=== PATIENT | male | born 1965 | race Caucasian/White ===

== ENCOUNTER 2017-06-09 08:16 | Day surgery (SDC) | payer MEDICAID, SELFPAY ==
[2017-06-09 08:41] VITALS: BP 147/86; PULSE 75; RESP 16; TEMP 36.2; O2SAT 96; BMI 39.6
--- NOTE | 2017-06-09 10:10 | RAD_ITS ---
STUDY: HIP INJECTION LEFT REASON FOR EXAM: Male, 51 years old. Left hip pain. FLUOROSCOPY TIME (if supplied): (6.1 seconds) minutes/seconds TECHNIQUE: Under fluoroscopic guidance, the pain medicine physician performed a left hip injection. COMPARISON: None. FINDINGS: Imaging provided for left hip injection. RAD/Inj/Asp Brian Jt Should/Hip/Knee IMPRESSION: Imaging provided for left hip injection. Electronically Signed: Joon Sanches MD at 9:03 EST Tel [phone], Service support ,
[2017-06-09] MEDS: Bupivacaine 0.25% 30 ML Vial (10:23)
[2017-06-09] MEDS: MethylPREDNISolone Acetate 80 MG/ML Vial (10:24)
[2017-06-09 10:30] VITALS: BP 105/82; BP 147/86; PULSE 70; RESP 16; TEMP 36.9; O2SAT 94
[2017-06-09 10:35] VITALS: BP 106/82; BP 147/86; PULSE 75; RESP 16; O2SAT 94
[2017-06-09 10:40] VITALS: BP 116/76; BP 147/86; PULSE 72; RESP 16; O2SAT 96
[2017-06-09 10:45] VITALS: BP 111/84; BP 147/86; PULSE 70; RESP 16; TEMP 36.7; O2SAT 96
[2017-06-09 11:05] VITALS: BP 147/86
--- NOTE | 2017-06-09 11:22 | PCM.OPRPT ---
Problem List (1) Primary osteoarthritis of left hip Status: Chronic Report of Operation Date of Procedure: 06/09/17 Pre-Operative Diagnosis: Osteoarthritis of the left hip Post-Operative Diagnosis: Osteoarthritis of the left hip Surgery/Procedure Performed:: Left hip intra-articular steroid injection under fluoroscopic guidance Description of Surgical Findings:: PROCEDURE: Left hip intra-articular steroid injection under fluoroscopy guidance PREOPERATIVE DIAGNOSES: Osteoarthritis of the left hip POSTOPERATIVE DIAGNOSES: Osteoarthritis of the left hip ANESTHESIA: MAC COMPLICATIONS: None BLOOD LOSS: Minimal PROCEDURE IN DETAIL: History and physical today was reviewed. Risks and benefits of the procedure were explained. The patient understood, agreed to our procedure, and informed consent was obtained. IV inserted per routine protocol. The patient was taken to the operating room, placed in a supine position the left hip area was prepped and draped in a sterile fashion using iodine ?3 under direct visualization with fluoroscopy on AP view the left greater trochanter and the left hip was visualized the skin and subcutaneous tissue were anesthetized with approximately 3 cc of 1% lidocaine using a 25-gauge regular needle under direct visualization with fluoroscopy on a lateral approach using a 22-gauge 5 inch spinal needle the needle was advanced via the skin the tip of the needle was was maneuvered and directed towards the left hip joint once the tip of the needle is at the vicinity of the superiormost aspect of the hip joint, after negative aspiration for blood positive aspiration of saline over fluid a total of 1 cc of contrast were injected to confirm correct placement of the needle as well as halo spread around the hip joint confirmation was obtained on AP as well as oblique view after repeated negative aspiration for blood and confirmation AP as well as oblique view a total of 10 cc of preservative-free 0.25% Marcaine with 80 mg of Depo-Medrol were injected into the joint , the needle was then removed intact patient experienced no signs or symptoms of intravascular injection patient experienced no paresthesia the procedure was completed without any apparent difficulty any complication and the patient appeared to tolerate well. ASSESSMENT AND PLAN: This is a 51-year-old male with osteoarthritis of the left hip status post left hip intra-articular steroid injection under fluoroscopic guidance patient will continue his current medications patient will follow approximately 2 weeks for reevaluation.
== END 2017-06-09 11:06 | disposition home or self-care (01) ==
LOC: SDC 08:17 → AC 08:19
PROVIDERS: Family Provider Family Medicine; PCP Family Medicine; Visit Provider Anesthesiology Pain Medicine
PROC: 3E0U3GC Introduction of Other Therapeutic Substance into Joints, Percutaneous Approach (ICD-10-PCS; CPT 20610; principal; 2017-06-09 10:05)
DX: M16.12 Unilateral primary osteoarthritis, left hip (principal); M51.17 Intervertebral disc disorders with radiculopathy, lumbosacral region; M48.07 Spinal stenosis, lumbosacral region; I10 Essential (primary) hypertension; Z79.891 Long term (current) use of opiate analgesic
CPT/HCPCS: 20610; 76000; 77002; J7120

== ENCOUNTER 2017-10-21 08:35 | Inpatient (IN) | payer MEDICAID, SELFPAY ==
--- NOTE | 2017-10-10 08:33 | EKG12_ITS ---
Test Reason : Blood Pressure : / mmHG Vent. Rate : 090 BPM Atrial Rate : 090 BPM P-R Int : 170 ms QRS Dur : 084 ms QT Int : 358 ms P-R-T Axes : 028 009 009 degrees QTc Int : 437 ms Poor data quality, interpretation may be adversely affected Normal sinus rhythm Normal ECG Confirmed by SANDRA KENYON, KELY ([id number]), movie editor DURAN CAVANAUGH ([id number]) on 10/13/2017 3:33:43 PM Referred By: Lambert Munoz Confirmed By:KELY FLORES MD
[2017-10-10 08:47] VITALS: BP 140/86; PULSE 91; RESP 18; TEMP 36.1; O2SAT 95; BMI 40.1
[2017-10-10 10:50] LABS: Absolute Lymphocyte Count 2.01 X10^3/ul (0.83-4.51); Absolute Neutrophil Count 5.8 X10^3/uL (2.0-7.7); Basophil# 0.02 X10^3/uL; Basophil% 0.2 % (0-1); Eosinophil# 0.22 X10^3/uL; Eosinophils% 2.5 % (0-5); Hematocrit 44.8 % (40-54); Hemoglobin 15.2 g/dl (13.0-16.5); Lymphocyte # 2.01 X10^3/ul (4.0); Mean Corp Hgb Conc 33.9 g/gl (32-36); Mean Corpuscular Hgb 29.6 pg (27.0-32.0); Mean Corpuscular Volume 87.3 fL (80-94); Mean Platelet Vol. 10.2 fl (6.2-12.0); Neutrophil # 5.76 X10^3/uL (2.7-7.7); Neutrophil % 66.1 % (47-70); Platelet Count 263 K/mm3 (150-450); RBC Distribution Width CV 12.6 % (11.6-14.6); RBC Distribution Width SD 40.5 fl (35.1-43.9); Red Blood Count 5.13 M/mm3 (4.6-6.2); White Blood Count 8.7 K/mm3 (4.4-11.0)
[2017-10-10 10:51] LABS: POSITIVE COUNT NO; POSITIVE DIFFERENTIAL NO; POSITIVE MORPHOLOGY NO
[2017-10-10 11:09] LABS: Anion Gap 11 (5-15); BUN 20 mg/dL (7-18); BUN/Creat Ratio 15.4 RATIO (10-20); Calcium,Total 8.8 mg/dL (8.5-10.1); Chloride 104 mmol/L (98-107); EST Glomerular Filtration Rate 62 mL/min (>60); Est Glom Filt Rate - Afr Amer 75 mL/min (>60); Estimated Creatinine Clearance 70.97 ml/min; Glucose 97 mg/dL (74-106); Potassium 4.3 mmol/L (3.5-5.1); Sodium Level 138 mmol/L (136-145)
[2017-10-21] VITALS (11 sets, daily range): BP systolic 99–146; BP diastolic 65–98; PULSE 52–83; RESP 14–18; TEMP 36.1–36.8; O2SAT 93–98; BMI 40.1
[2017-10-21] MEDS: oxyCODONE HCl Cr 10 MG Tablet PO (09:13)
[2017-10-21] MEDS: Celecoxib 200 MG Capsule 400 MG PO (09:13)
[2017-10-21] MEDS: Acetaminophen 500 MG Tablet 1000 MG PO ×2 (09:13→22:02)
[2017-10-21] MEDS: Cefazolin 2 GM in 0.9% Normal Saline 100 ML IV (10:09)
--- NOTE | 2017-10-21 10:18 | PCM.OPRPT ---
Report of Operation Date of Procedure: 10/21/17 Pre-Operative Diagnosis: Left hip primary with arthritis Post-Operative Diagnosis: Left hip primary osteoarthritis Surgery/Procedure Performed:: Left direct anterior total hip replacement Description of Surgical Findings:: Stable hip with equal leg length deputy county counsel: Shakir Senior Type of Anesthesia:: Spinal Anesthesiologist: Huang Ronquillo Special Medications: 2 g Ancef, 1 g TXA at incision, 1 g TXA closure, 10 mg Decadron, joint cocktail (5 mg Duramorph, 30 mL of 0.5% Ropivicaine, 1000 units of epinephrine, 30 mg of Toradol) Specimen's removed: Bony cuts Estimated Blood Loss (mL): 250 Fluids Replaced: 1200 ml Crystalloid Description of Procedure: Components used: 1. Accolade 2 Cozad femoral stem size 4 127? 2. Cozad trident acetabular shell size 58 mm 3. Radha X3 polyethylene F, eccentric 4. Radha Biolox delta 36mm, 0mm femoral head Brief history operative indications: 51 yo m who failed conservative measures for their hip osteoarthritis. X-rays were consistent with osteoarthritis including joint space narrowing, osteophyte formation and subchondral cysts. Total hip replacement was discussed with the patient with risks and benefits including but not limited to blood loss, DVTs, PEs, neurovascular damage, dislocation, general risks of anesthesia including loss of life. Patient demonstrated an understanding medical clearance is obtained the patient was consented for surgery. Procedure: On the date of procedure the patient's L hip was marked in the preoperative area. Patient was then taken back to the operating room where anesthesia assumed control of the C-spine and airway and administered anesthetic. Patient was transferred to the operating table and placed in the supine position. The hips were placed at the break of the bed and a sacral bump was placed. The L lower extremity was then prepped out in a sterile fashion using chlorhexidine while the surgeon scrubbed. The PA was vital in the positioning of the patient. Upon reentering the room the L lower extremity was draped in the standard orthopedic fashion and the incision was marked. A timeout was called and everyone agreed upon the side, the site, the procedure be performed, antibody given, and patient's identity. At this time incision was made through skin, subcutaneous tissue, and fat down to fascia. The fascia was then incised and the TFL was retracted laterally. A retractor was placed on the lateral border of the femoral neck. Attention was directed to the inferior portion of the approach and all crossing vessels were identified and appropriately coagulated. A retractor was then placed on the medial portion of the femoral neck. The anterior capsule was then cleared of all soft tissue and then H shaped capsulotomy was made. The retractors were then placed inside the capsule. The femoral neck was identified and a cleanup cut was made. At this time a power corkscrew was used to remove the femoral head. Attention was then turned toward the acetabulum where the soft tissues were appropriately retracted and the acetabulum was sequentially reamed to 57 mm. A 58 mm cup was then selected and impacted into place. Acetabular liner was impacted into place and locking mechanism was verified. The position of the acetabular cup was then verified under live fluoroscopy. Attention was then turned to the femur. Soft tissue releases on the medial and lateral femoral neck were appropriately done, the leg was externally rotated and lateralized. A Booth retractor was placed medially and proximally to the greater trochanter this allowed appropriate visualization and exposure of the femoral canal. Rongeour was then used to remove excess lateral bone. A canal finder and entry broach were used to open the proximal canal. Once we verified we were down the femoral canal we subsequently broached up to a size 4 femur. The appropriate neck was placed in the previously selected head was trialed with a 0 mm neck. Traction was pulled and the hip was reduced with internal rotation. Once it was appropriately reduced and stability was checked. There was minimal shuck, equal leg lengths and appropriate stability with hyperextension and external rotation as well as with 90? flexion and internal rotation. Fluoroscopy was then also used to verify the position of the components and leg lengths using the contralateral side for comparison. The trial components were then dislocated the proximal femur was again exposed and the components were removed from the wound. The final components were verified and opened. The wound was copiously irrigated out with normal saline. The acetabulum was checked for any residual debris. The final components were placed and impacted. Traction and internal rotation were again used to reduce the hip. After adequate reduction the hip remained stable with appropriate leg lengths. The final components were once again checked with live fluoroscopy and were found to be satisfactory. The wound was then copiously irrigated with normal saline once more, and hemostasis was obtained. Closure was then done using #1 Vicryl runner to close the fascia. A 2-0 vicryl interuppted sutures were used to close the subcutaneous skin. A 3-0 Monocryl and Steri-Strips were used for final skin closure. A Silverlon dressing was placed. Patient was awakened by anesthesia and transferred to the [facility]. Patient was then transferred to the PACU for recovery. Postoperative plan: Patient will get 24 hours postop antibiotics. Patient will get in-house physical therapy and will be weight-bear as tolerated. Patient will follow up in office in 2 weeks for a wound check and x-rays. During the course of the procedure the physician pharmacy technician assistant played a vital role. His intimate knowledge of my steps in the procedure aided in safe and expedient completion of the procedure. The PA played a vital rolls in positioning particularly in obtaining the appropriate positioning of the sacral bump. The PA was also vital in the retraction of soft tissues during the exposure and especially the femoral work as this is a vital part of the procedure to prevent complications and fractures. The PA was also vital and protecting soft tissues during times of bony cuts and reaming. He also played a vital role in closure with my direct supervision. The PA was also important during reduction and dislocation of the joint and trials intraoperatively. Grafts/Implants Used: Radha Accolade 2 - Complications none - Admit VTE Documentation VTE Present on Admission: No VTE Mechan Device Prophylaxis: SCD's, Thigh High SWAPNIL Hose VTE Pharm Prophylaxis ordered?: Yes
--- NOTE | 2017-10-21 11:10 | RAD_ITS ---
STUDY: X-RAY - PELVIS AND LEFT HIP REASON FOR EXAM: Male, 51 years old. Left hip replacement. TECHNIQUE: Radiological exam, hip, unilateral, with pelvis when performed; 1 view COMPARISON: None. FINDINGS: Intraoperative fluoroscopic services provided for left anterior total hip replacement. RAD/Hip 1 view with Pelvis IMPRESSION: Intraoperative imaging provided for left anterior total hip replacement. Electronically Signed: Joon Sanches MD at 14:13 EDT Tel [phone], Service support ,
--- NOTE | 2017-10-21 13:10 | RAD_ITS ---
STUDY: X-RAY - PELVIS AND LEFT HIP REASON FOR EXAM: Male, 51 years old. Total hip replacement. TECHNIQUE: Radiological exam, hip, unilateral, with pelvis when performed; 1 view COMPARISON: Comparison is made with prior examination dated October 17, 2013. FINDINGS: The patient is status post left total hip replacement. There is good alignment. Postoperative soft tissue changes. Remote right total hip replacement. RAD/Hip 1 view with Pelvis IMPRESSION: Status post left total hip replacement. There is good alignment. Postoperative soft tissue changes. Electronically Signed: Joon Sanches MD at 14:05 EDT Tel [phone], Service support ,
[2017-10-21] MEDS: Senna/Docusate Sodium 1 Tablet 2 TABLET PO ×2 (16:18→22:03)
[2017-10-21] MEDS: Famotidine 20 MG Tablet PO (16:18)
[2017-10-21] MEDS: Aspirin 81 MG TAB.CHEW PO (16:18)
[2017-10-21] MEDS: oxyCODONE 5 MG Tablet PO ×2 (16:21→22:03)
[2017-10-21] MEDS: Cefazolin 1 GM/50 ML BAG IV (16:23)
[2017-10-21] MEDS: Lactated Ringers 1,000 ML 125 ML IV (18:18)
[2017-10-22] MEDS: Cefazolin 1 GM/50 ML BAG IV (01:01)
[2017-10-22 02:20] VITALS: BP 100/62; PULSE 51; RESP 14; TEMP 36.6; O2SAT 96
[2017-10-22] MEDS: Lactated Ringers 1,000 ML 125 ML IV (02:23)
--- NOTE | 2017-10-22 05:08 | NURSING ---
Pt heard yelling in room. When this nurse + ENGINE TEST CELL TECHNICIAN walked into the room, pt was found sitting in chair stretching out leg, appearing to be in pain after having stood up quickly after having a 'bad dream'. Denies N/T or sharp radiating pain. Polar care place back on hip, will continue to monitor
[2017-10-22 06:06] LABS: Hematocrit 37.8 % (40-54); Hemoglobin 12.9 g/dl (13.0-16.5); Mean Corp Hgb Conc 34.1 g/gl (32-36); Mean Corpuscular Hgb 29.6 pg (27.0-32.0); Mean Corpuscular Volume 86.7 fL (80-94); Mean Platelet Vol. 10.4 fl (6.2-12.0); Platelet Count 242 K/mm3 (150-450); RBC Distribution Width CV 12.7 % (11.6-14.6); RBC Distribution Width SD 39.2 fl (35.1-43.9); Red Blood Count 4.36 M/mm3 (4.6-6.2); White Blood Count 16.3 K/mm3 (4.4-11.0)
[2017-10-22 06:13] LABS: Scan Indicated on CBC? Y/N NO
[2017-10-22 06:26] LABS: Anion Gap 11 (5-15); BUN 17 mg/dL (7-18); BUN/Creat Ratio 15.9 RATIO (10-20); Calcium,Total 8.8 mg/dL (8.5-10.1); Chloride 105 mmol/L (98-107); Creatinine, Serum 1.07 mg/dL (0.70-1.30); EST Glomerular Filtration Rate 78 mL/min (>60); Est Glom Filt Rate - Afr Amer 94 mL/min (>60); Estimated Creatinine Clearance 86.23 ml/min; Glucose 140 mg/dL (74-106); Potassium 4.4 mmol/L (3.5-5.1); Sodium Level 140 mmol/L (136-145)
[2017-10-22] MEDS: oxyCODONE 5 MG Tablet PO ×3 (06:26→14:57)
[2017-10-22] MEDS: Acetaminophen 500 MG Tablet 1000 MG PO ×2 (06:26→13:37)
--- NOTE | 2017-10-22 07:13 | PCM.PN.ORT ---
Subjective: The patient was sitting in bedside chair upon examination. Patient denies any chest pain, shortness of breath, dizziness, lightheadedness, nausea or vomiting, or calf pain. Pain is controlled on medications. No adverse overnight events. Overall patient is doing well today. He does have pain in the left hip but medications are helpful. Objective: Vital signs stable and afebrile. Patient is able to plantarflex and dorsiflex actively. Sensation is intact to light touch to saphenous, sural, superficial and deep peroneal, and tibial distribution. Dressing is clean dry and intact. Negative Homans bilaterally, negative signs and symptoms of DVT. - Physical Exam General: Alert, Oriented x3, Cooperative, No apparent distress Vital Signs Temp Pulse Resp BP Pulse Ox 97.8 F 51 L 14 100/62 96 10/22/17 02:20 10/22/17 02:20 10/22/17 02:20 10/22/17 02:20 10/22/17 02:20 Oxygen Delivery Method Room Air Weight: 127.006 kg Body Mass Index (BMI) 40.1 Intake and Output for Last 24 Hours 10/20/17 10/21/17 10/22/17 23:59 23:59 23:59 Intake Total 2175 / 2175 2715 / 2715 Output Total 700 / 700 Balance 2175 / 2175 2014 Laboratory Tests Past 24 Hrs 10/22/17 10/22/17 05:20 05:20 WBC 16.3 H RBC 4.36 L Hgb 12.9 L Hct 37.8 L MCV 86.7 MCH 29.6 MCHC 34.1 RDW 12.7 RDW Differential 39.2 Plt Count 242 MPV 10.4 Sodium 140 Potassium 4.4 Chloride 105 Carbon Dioxide 24.0 Anion Gap 11 BUN 17 Creatinine 1.07 Estim Creat Clear Calc 86.23 Est GFR (MDRD) Af Amer 94 Est GFR (MDRD) Non-Af 78 BUN/Creatinine Ratio 15.9 Glucose 140 H Calcium 8.8 Medical Necessity - Tobacco Use Smoking Status: Never smoker Assessment/Plan 1. S/P left total hip arthroplasty direct anterior POD #1 2. Continue Pain Medications: Tylenol and OxyIR 3. DVT Prophylaxis: 81 mg aspirin twice daily for 4 weeks 4. PT/OT: Weightbearing as tolerated 5. H & H: 12.9/37.8, asymptomatic 6. Leukocytosis: Currently 16.3, afebrile. Patient did receive Decadron intraoperatively 7. Encouraged Incentive Spirometry 8. Disposition: Plan is for possible discharge home today if patient tolerates physical therapy and pain is well controlled. Patient will follow-up per postop instructions. Prescriptions will be E scribed to [facility]
--- NOTE | 2017-10-22 07:19 | PCM.DC.THR ---
Discharge Diet: No Restrictions Discharge Activity: May Not Drive - while taking narcotic pain medications. May shower in (days): 1 - Turned dressing away from water Ice area for (Minutes): 20 - Every 1-2 hours while awake Weight Bearing Status: Weight bearing as tolerated Elevate: Operative Extremity Additional Activity Instructions:: Wear elastic stockings for 2 weeks. DO NOT use alcohol with narcotic pain medication. DO NOT make important decisions while taking narcotic medication. If you have problems with taking your medication (rash, itching, nausea, etc.) call the office at once. Call your doctor if your incision/area has: Increased Pain/ Swelling, Increased Redness, Foul Smelling Discharge Call your doctor if you observe: Fever of 101 or Higher Remove Dressing in (days):: 4 - Okay to remove on October 26, 2017 Additional Instructions: Follow [facility] postop instructions Allergies/Adverse Reactions: Allergies morphine Adverse Reaction (Verified 10/10/17 08:37) Other HYPER Medications to take at Discharge Acetaminophen [Tylenol] 1,000 mg PO Q8 #90 tab 10/22/17 Aspirin [Aspirin, Baby] 81 mg PO BIDCM #60 tab.chew 10/22/17 Famotidine [Pepcid] 20 mg PO DAILY #30 tab 10/22/17 Meloxicam [Mobic] 7.5 mg PO BID #60 tab 10/22/17 Oxycodone [Oxyir] 5 - 10 mg PO Q4H PRN PRN 5 Days #60 tablet 10/22/17 Senna/Docusate Sodium [Senokot-S] 2 tab PO BID #20 tab 10/22/17 The following prescriptions were given: Oxycodone [Oxyir] 5 - 10 mg PO Q4H PRN PRN 5 Days #60 tablet PRN Reason: Mod-Severe Pain (4-10/10) Acetaminophen [Tylenol] 1,000 mg PO Q8 #90 tab Famotidine [Pepcid] 20 mg PO DAILY #30 tab Aspirin [Aspirin, Baby] 81 mg PO BIDCM #60 tab.chew Meloxicam [Mobic] 7.5 mg PO BID #60 tab Senna/Docusate Sodium [Senokot-S] 2 tab PO BID #20 tab Primary Care Physician: Allan Munoz MD [Primary Care Provider] - Test Results: Test results from this visit will be discussed in further detail at your follow-up appointment, if applicable. Please Follow Up With: physical therapy Please Follow Up With: Shakir Senior PA-C When: 11/03/17 @ 1:15 pm
[2017-10-22 08:24] VITALS: BP 116/61; PULSE 54; RESP 18; TEMP 36.5; O2SAT 98
[2017-10-22] MEDS: Meloxicam 7.5 MG Tablet PO (08:31)
[2017-10-22] MEDS: Aspirin 81 MG TAB.CHEW PO (08:32)
[2017-10-22] MEDS: Famotidine 20 MG Tablet PO (08:32)
[2017-10-22] MEDS: Senna/Docusate Sodium 1 Tablet 2 TABLET PO (08:32)
--- NOTE | 2017-10-22 12:00 | CASEMGMT ---
BENJAMIN BRUCE Face to Face with patient for initial transition planning/care coordination assessment. BENJAMIN BRUCE introduced self and role at [facility]. Patient sitting in chair, alert and oriented. Patient willing to participate in assessment and is able to answer all questions appropriately. Care providers, pharmacy, and demographics verified. Patient states that he will be staying with parents in their one story home. Patient's parents will be providing transportation. Patient states that he has crutches and hip kit at home. RN JANIS discussed need for walker at discharge. Patient provided list of [employer] companies and is agreeable to [employer]. BENJAMIN BRUCE obtained script for FWW and faxed to [employer] and arranged for deliver to hospital prior to discharge. Patient wishes to discharge home and is setup with [facility] for outpatient therapy with parents providing transportation. Patient states he has no further needs or concerns at this time. CM to follow for discharge planning needs that may arise. Disposition Plan: Patient to discharge home with outpatient therapy, family support, and follow-up plans in place.
[2017-10-22 13:34] VITALS: BP 109/51; PULSE 70; RESP 18; TEMP 37.1; O2SAT 96
== END 2017-10-22 15:02 | disposition home or self-care (01) | DRG 209 ==
LOC: ACINP 08:36 → MS3 12:25
PROVIDERS: Admitting Provider Specialist; Family Provider Family Medicine; PCP Family Medicine; Visit Provider Specialist
PROC: 0SRB04A Replacement of Left Hip Joint with Ceramic on Polyethylene Synthetic Substitute, Uncemented, Open Approach (ICD-10-PCS; CPT 27284; principal; 2017-10-21 10:45)
DX: M16.12 Unilateral primary osteoarthritis, left hip (principal); Z96.641 Presence of right artificial hip joint
CPT/HCPCS: 36415; 73501; 76000; 80048; 85025; 85027; 87081; 93005; 97116; 97162; 97165; 97530; 99251; C1776; J7120; G0463

== ENCOUNTER 2020-05-03 05:39 | Day surgery (SDC) | payer MEDICAID, SELFPAY ==
[2017-10-21 14:05] VITALS: BMI 40.1
[2020-05-03] VITALS (8 sets, daily range): BP systolic 115–133; BP diastolic 76–96; PULSE 60–73; RESP 17–18; TEMP 36.2–37; O2SAT 97–99; BMI 43.4
[2020-05-03] MEDS: Cefazolin 1 GM/50 ML BAG IV (07:21)
[2020-05-03] MEDS: Lidocaine 1% (30 ml sdv) 30 ML Vial (07:42)
[2020-05-03] MEDS: Bupivacaine Mpf 0.5% 30 ML VIAL (07:42)
--- NOTE | 2020-05-03 07:44 | PCM.OPRPT ---
Report of Operation Date of Procedure: 05/03/20 Pre-Operative Diagnosis: Left carpal tunnel syndrome Post-Operative Diagnosis: Left carpal tunnel syndrome Surgery/Procedure Performed:: Left carpal tunnel release Description of Surgical Findings:: Complete release transverse carpal ligament hogshead roller: None Type of Anesthesia:: Block,Eric Anesthesiologist: Gildardo Acevedo Special Medications: Ancef 1 g Estimated Blood Loss (mL): 2 Fluids Replaced: Crystalloid Description of Procedure: Brief history operative indications: 54-year-old male patient wished to proceed with left open carpal tunnel release. After discussing risks and benefits including but not limited to blood loss, DVTs, PEs, neurovascular damage, infection, hematoma and general risk of anesthesia, the patient demonstrated understanding wish to proceed with left open carpal tunnel release Procedure: On the date of the procedure, the patient's left upper extremity was marked in the preoperative area. Patient was taken back to the operating room, where the tourniquet was placed on the right upper extremity. Patient was given light sedation. All bony prominences are identified well-padded. Anesthesia assumed control C-spine and airway and remained in control throughout the remainder the procedure. Bonduel block was administered by anesthesia. The left upper extremity was prepped in sterile fashion. Surgeon then scrub. Upon reentering the room, the left upper extremity was prepped in a standard orthopedic fashion. A timeout was called and everyone agreed upon the side, the site, the procedure to be performed, patient identity and antibiotics given. The incision was marked out. Incision was taken at the skin subtenons tissue fat down to fascia. Fascia was then lightly tethered until the median nerve was visible. A [place] was placed proximally and distally, and then scissors were placed proximally and distally to release the transverse carpal ligament. During the release the others were never completely closed. The [place] was then placed proximally and distally once more to verify the transverse carpal ligament had been adequately released. The wound was then copiously irrigated out with normal saline. Wound was then closed using 3-0 nylon suture. 10 cc of 50-50 mixture of 1% lidocaine and 0.5% Sensorcaine without epinephrine injection was given. Xeroform dressing was placed, sterile dressing was placed, compressive dressing was placed. Tourniquet was let down. Volar splint was placed. Patient was awakened by anesthesia and transferred to the PACU for recovery. Postoperative plan: The patient will follow up in 2 weeks for removal splint removal sutures. At that time if they are doing well they will follow-up as needed. - Complications No intraoperative complications - Admit VTE Documentation VTE Present on Admission: No VTE Mechan Device Prophylaxis: SCD's VTE Pharm Prophylaxis ordered?: No
[2020-05-03] MEDS: Ketorolac 30 MG/ML Syringe IV (08:04)
== END 2020-05-03 09:14 | disposition home or self-care (01) ==
LOC: SDC 05:40 → AC 05:40
PROVIDERS: PCP Family Medicine; Referring Provider Specialist; Visit Provider Specialist
PROC: (CPT 64721; principal; 2020-05-03 07:15)
DX: G56.03 Carpal tunnel syndrome, bilateral upper limbs (principal); I10 Essential (primary) hypertension; E78.5 Hyperlipidemia, unspecified; M10.9 Gout, unspecified; M19.90 Unspecified osteoarthritis, unspecified site; Z20.822 Contact with and (suspected) exposure to COVID-19; G47.30 Sleep apnea, unspecified; F32.9 Major depressive disorder, single episode, unspecified; F41.9 Anxiety disorder, unspecified; E66.01 Morbid (severe) obesity due to excess calories; Z68.42 Body mass index [BMI] 45.0-49.9, adult; Z79.899 Other long term (current) drug therapy; Z96.643 Presence of artificial hip joint, bilateral
CPT/HCPCS: 64721; 87426; C9803; J7120; J2405

== ENCOUNTER 2020-05-24 05:26 | Day surgery (SDC) | payer MEDICAID, SELFPAY ==
[2020-05-03 06:38] VITALS: BMI 43.4
--- NOTE | 2020-05-18 09:11 | HP.PCM_ITS ---
History and Physical History and Physical [facility] Patient Name: Jr Welch : 1965 From: CYNTHIA BROWER PA-C DATE OF SURGERY: 05/24/2020 SCHEDULED PROCEDURE: right carpal tunnel release HISTORY OF PRESENT ILLNESS: Preoperative history and physical exam was performed on May 18, 2020. This is a 54-year-old male who is had ongoing pain and numbness and tingling in bilateral hands for the past approximately 9 months. He was initially treated by Dr. Allan Munoz's primary care physician. Patient had an EMG nerve conduction study exam on April 18, 2020 which revealed moderate to severe carpal tunnel syndrome bilaterally with the left being worse than the right. Patient underwent a left carpal tunnel release on May 03, 2020 and is doing well. He has continued to have pain and symptoms in his right hand. Patient is left-hand dominant. He has numbness and tingling in the median nerve distribution. Patient states it occasionally wakes him at night. The right hand pain can reach 8/10 with activities. He does not complain of any significant cervical neck pain or elbow pain. Patient does wish to proceed with a right carpal tunnel release by Dr. Lambert Munoz. REVIEW OF SYSTEMS: ROS: Const: Reports anxiety and difficulty sleeping, but denies anorexia, change in appetite, fever, weight change. CV: Denies chest pain, heart murmur, irregular heartbeat and peripheral vascular disease. Resp: Reports sleep apnea, but denies asthma, cough, pneumonia, shortness of breath, tuberculosis and wheezing. GI: Denies constipation, diarrhea, heartburn, nausea, rectal itching, bloody stools and vomiting. : Denies incontinence. Musculo: Reports trouble walking and weakness, but denies leg swelling and pain. Skin: Reports history of shingles, but denies Raynaud's and tattoo. Neuro: Denies ambulatory dysfunction, dizziness, numbness/tingling and tremor. Psych: Reports anxiety, depression, insomnia and stress, but denies mental illness. Zain/Lymph: Denies anemia, bleeding/bruising tendency and past transfusion. Reviewed, no changes. PAST MEDICAL HISTORY: Advance Care Plan: No Advance Directives Effective Date: 12/20/2016 PMH: Medical Problems: Arthritis, High Blood Pressure, Hyperlipidemia Accidents: Sports Related Injury - CALCIUM DEPOSIT ON HIP (DR. STRONG) Surgical Hx: Hip Replacement RT - (11/28/2008) DR. EMMANUEL, [facility] LT THR - (10/21/2017) [email or web address] Carpal Tunnel Release LT - (05/03/2020) SAW AT [facility] Anesthesia Complications: None Assistive Devices: None Reviewed, no changes. SOCIAL HISTORY: SH: Marital: .Occupation: [employer].Work Status: Currently Working.Hand Dominance: Left-Handed. Personal Habits: Cigarette Use: Never.Alcohol: Occasionally.Drug Use: Denies Use.Enjoy Exercising: Exercises 1-3 x/month. Reviewed, no changes. VITALS: Ht: 69 Wt: 298lb Wt k.173 BMI: 44.0 BP: 128/86 Pulse: 78 Resp: 16 T: 97.5 T: 36.4C Pain Level: 1 ALLERGIES: Morphine Morphine And Related MEDICATIONS: [place] 5-325 mg 1-2 by mouth every 6 hour as needed pain, Allopurinol 300 mg Take 1 tablet by mouth daily, Ibuprofen 200 mg 2-3 tablets PO prn pain, Atorvastatin Calcium 20 mg, Tylenol Extra Strength 500 mg 2 by mouth every 8 hours PRE-OP EXAM: General appearance:NORMAL Other: Eyes: Conjunctivae and lids: NORMAL Pupils: ERR Ears, Nose, Mouth, and Throat: NORMAL Other: Inspection of lips, teeth and gums: NORMAL Other: Neck: Examination of neck: no masses noted. Respiratory: Assessment of respiratory effort: NORMAL Other: Auscultation of lungs: clear to auscultation no wheezes, rhonchi or rales. Cardiovascular: Auscultation of heart: regular rate and rhythm, no murmurs, gallops or rubs. Exam of carotid arteries: NORMAL Other: Gastrointestinal: Exam of abdomen: soft, nontender, nondistended bowel sounds present. PHYSICAL EXAMINATION: On exam of the right hand it is cool to touch without erythema or signs of infection. No appreciable atrophy. He does complain of numbness and tingling in the median nerve distribution. Patient has full composite fist and full extension of fingers. Equal range of motion bilaterally. Patient has positive carpal compression on the right, positive Phalen's on the right, negative Tinel's at the wrist and elbow on the right. 2. discrimination on the right 6 mm in the thumb and 4 mm in the index, long, ring, small fingers. Patient's left wrist has healing carpal tunnel incision without evidence of drainage or erythema or signs of infection. IMAGING STUDIES: Previous EMG nerve conduction study exam on April 18, 2020 reveals bilateral moderate to severe carpal tunnel syndrome IMPRESSION: 1. Moderate to severe right carpal tunnel syndrome 2. Status post 2 week left carpal tunnel release 3. Hypertension 4. Hyperlipidemia PLAN: Dr. Lambert Munoz did discuss and review with the patient all treatment options including surgical versus nonsurgical options. Patient does wish to proceed with the above-stated procedure. Potential risks, benefits, and complications of the procedure were discussed in detail including but not limited to , infection, nerve and blood vessel damage, persistent pain, numbness, tingling, paresthesias, blood clot, pulmonary embolism, and requirement for possible further surgery. The patient expressed full understanding and has no further questions for the doctor. Patient does agree to proceed with the above-stated procedure and has signed the surgery consent form. We discussed the current risks associated with COVID 19. This does include the risk of exposure while in the hospital. Patient was reassured local hospitals have low infection rates and are taking all necessary precautions to avoid exposure to patients. In addition, we discussed strategies that can be used to help limit exposure including those that limit the patient's time in the hospital. Also using strategies to limit the patient's need for continued inpatient services after being discharged from the hospital. Patient was notified that we will need to comply with any screening or testing the hospital wishes to perform or that surgery may be delayed for any positive results. This dictation was created using voice recognition software. Phonetic and/or grammatical errors may exist. ___ I have re-examined the patient. There are no clinical changes since date of exam. ___ See progress notes for changes. ___ Dictated on admission Date: Time: Signature:
[2020-05-24 06:18] VITALS: BP 128/99; PULSE 84; RESP 16; TEMP 36.7; O2SAT 97; BMI 44.3
[2020-05-24] MEDS: Lactated Ringers 1,000 ML 100 ML IV (06:27)
[2020-05-24] MEDS: Ketorolac 15 MG/ML Vial IV (06:44)
[2020-05-24] MEDS: Lidocaine 1% (20 ml mdv) 20 ML Vial (07:28)
[2020-05-24] MEDS: Bupivacaine Mpf 0.5% 30 ML VIAL (07:28)
--- NOTE | 2020-05-24 07:30 | PCM.OPRPT ---
Report of Operation Date of Procedure: 05/24/20 Pre-Operative Diagnosis: Right carpal tunnel syndrome Post-Operative Diagnosis: Right carpal tunnel syndrome Surgery/Procedure Performed:: Right carpal tunnel release Description of Surgical Findings:: Complete release transverse carpal ligament kiss mixer: None Type of Anesthesia:: Block,Farber Anesthesiologist: Huang Ronquillo Special Medications: Ancef Estimated Blood Loss (mL): 2 Fluids Replaced: 300 mL crystalloid Description of Procedure: Brief history operative indications: 54-year-old male patient wished to proceed with right open carpal tunnel release. After discussing risks and benefits including but not limited to blood loss, DVTs, PEs, neurovascular damage, infection, hematoma and general risk of anesthesia, the patient demonstrated understanding wish to proceed with right open carpal tunnel release Procedure: On the date of the procedure, the patient's right upper extremity was marked in the preoperative area. Patient was taken back to the operating room, where the tourniquet was placed on the right upper extremity. Patient was given light sedation. All bony prominences are identified well-padded. Anesthesia assumed control C-spine and airway and remained in control throughout the remainder the procedure. Farber block was administered by anesthesia. The right upper extremity was prepped in sterile fashion. Surgeon then scrub. Upon reentering the room, the right upper extremity was prepped in a standard orthopedic fashion. A timeout was called and everyone agreed upon the side, the site, the procedure to be performed, patient identity and antibiotics given. The incision was marked out. Incision was taken at the skin subtenons tissue fat down to fascia. Fascia was then lightly tethered until the median nerve was visible. A [place] was placed proximally and distally, and then scissors were placed proximally and distally to release the transverse carpal ligament. During the release the others were never completely closed. The [place] was then placed proximally and distally once more to verify the transverse carpal ligament had been adequately released. The wound was then copiously irrigated out with normal saline. Wound was then closed using 3-0 nylon suture. 10 cc of 50-50 mixture of 1% lidocaine and 0.5% Sensorcaine without epinephrine injection was given. Xeroform dressing was placed, sterile dressing was placed, compressive dressing was placed. Tourniquet was let down. Volar splint was placed. Patient was awakened by anesthesia and transferred to the PACU for recovery. Postoperative plan: The patient will follow up in 2 weeks for removal splint removal sutures. At that time if they are doing well they will follow-up as needed. - Complications No intraoperative complications - Admit VTE Documentation VTE Mechan Device Prophylaxis: SCD's VTE Pharm Prophylaxis ordered?: No Reason prophylaxis not ordered:: Treatment Not Indicated
[2020-05-24 07:35] VITALS: BP 123/95; BP 128/99; PULSE 70; RESP 18; TEMP 36.4; O2SAT 98
[2020-05-24 07:40] VITALS: BP 128/99; BP 134/94; PULSE 71; RESP 16; O2SAT 95
[2020-05-24 07:45] VITALS: BP 128/99; BP 138/90; PULSE 74; RESP 16; O2SAT 95
[2020-05-24 07:50] VITALS: BP 128/99; BP 134/99; PULSE 70; RESP 18; TEMP 36.8; O2SAT 94
[2020-05-24 08:34] VITALS: BP 109/74; BP 128/99; PULSE 73; RESP 16; TEMP 37; O2SAT 97
== END 2020-05-24 08:37 | disposition home or self-care (01) ==
LOC: SDC 05:27 → AC 05:28
PROVIDERS: PCP Family Medicine; Referring Provider Specialist; Visit Provider Specialist
PROC: (CPT 64721; principal; 2020-05-24 07:00)
DX: G56.01 Carpal tunnel syndrome, right upper limb (principal); Z20.822 Contact with and (suspected) exposure to COVID-19; I10 Essential (primary) hypertension; E78.5 Hyperlipidemia, unspecified; M19.90 Unspecified osteoarthritis, unspecified site; Z96.641 Presence of right artificial hip joint; Z79.899 Other long term (current) drug therapy
CPT/HCPCS: 01810; 64721; 87426; C9803; J7120; A4216